=== PATIENT | female | born 1955 | race African-American/Black ===

== ENCOUNTER 2017-06-01 12:53 | Emergency (ER) | payer OTHER ==
[~2017-06-01] VITALS: Ht 170.2 cm; Wt 145.2 kg
--- NOTE | ~2017-06-01 | EKG ---
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 : 1955 Requested By: Barbie Currie Order Number: [id number] MD: Feliciano Chamberlain Measurements Intervals [place] Rate: 75 P: 59 WV: 164 QRS: 23 QRSD: 100 T: 10 QT: 382 QTc: 427 Interpretive Statements Sinus rhythm Minimal ST depression, inferior leads Compared to ECG 08/20/2011 10:27:09 ST (T wave) deviation now present Electronically Signed On 06-02-2017 16:39:12 CDT by Feliciano Chamberlain [email or web address] <ELECTRONICALLY SIGNED> By: Feliciano Chamberlain MD 06/02/17 1639 02 02 Feliciano Chamberlain MD /IOANA
[~2017-06-01 12:53] MED LIST: BP MED PO; CLARITIN10 M2 PO; FAMOTIDINE PO; HUMALOG100 UNIT/1; LANTUS; REGLAN 10 MG TA10 MG PO; STOOL SOFTENER240 MG; TRICOR48 MG; VICODIN 5-5001 EACH PO; ZANTAC 150MG T150 M1
[2017-06-01 14:00] LABS: URINE BILIRUBIN NEGATIVE (Negative); URINE BLOOD 2+ (Negative); URINE COLOR YELLOW; URINE GLUCOSE-RANDOM* NEGATIVE (Negative); URINE KETONES NEGATIVE (Negative); URINE NITRITE NEGATIVE (Negative); URINE PROTEIN (DIPSTICK) NEGATIVE (Negative); URINE UROBILINOGEN 0.2 E.U./dl (0.2-1.0)
[2017-06-01 14:08] LABS: SQUAMOUS 0-3 Few /LPF (0-3); URINE WBC 0-5 Rare /HPF (0-5)
[2017-06-01 14:09] LABS: BACTERIA 1-9 Few /HPF (None Seen); CASTS None Seen /LPF (None Seen); CRYSTALS None Seen /LPF (None Seen); URINE RBC 3-10 Few /HPF (0-2)
[2017-06-01 14:35] LABS: ABSOLUTE NEUTROPHILS 4.6 thou/uL (1.4-8.2); BASOPHILS 0.3 % (0.0-2.0); EOSINOPHILS 1.8 % (0.0-3.0); HEMATOCRIT 38.3 % (37.0-47.0); LYMPHOCYTES 31.6 % (24.0-44.0); MCH 29.4 pg (26.0-34.0); MCHC 33.9 g/dL (28.0-37.0); MCV 86.7 fL (80.0-100.0); PLATELET COUNT 254 thou/uL (150-400); POLYS 62.3 % (36.0-66.0); RBC 4.42 mil/uL (4.20-5.00); RDW 14.6 % (10.5-14.5); WBC 7.4 thou/uL (4.0-11.0)
[2017-06-01 14:36] LABS: MANUAL DIFF NO
[2017-06-01 14:43] LABS: ANION GAP 7 mmol/L (7-16); BUN 12 mg/dL (7-18); CALCIUM 9.4 mg/dL (8.5-10.1); CHLORIDE 102 mmol/L (98-107); CO2 29 mmol/L (21-32); CREATININE 0.8 mg/dL (0.6-1.0); GLUCOSE 182 mg/dL (74-106); POTASSIUM 4.3 mmol/L (3.5-5.1); SODIUM 138 mmol/L (136-145)
[2017-06-01] MEDS ORDERED: ATORVASTATIN CA40 MG PO (14:49)
[2017-06-01] MEDS ORDERED: METFORMIN HCL500 MG PO (14:49)
[2017-06-01 14:50] LABS: ALBUMIN 3.4 g/dL (3.4-5.0); ALKALINE PHOSPHATASE 102 U/L (46-116); DIRECT BILIRUBIN < 0.1 mg/dL (<0.1-0.3); SGOT 19 U/L (15-37); SGPT 21 U/L (30-65); TOTAL BILIRUBIN 0.5 mg/dL (<0.1-1.0); TOTAL PROTEIN 7.9 g/dL (6.4-8.2)
[2017-06-01] MEDS ORDERED: ZANTAC 150MG T150 MG PO (14:50)
[2017-06-01] MEDS ORDERED: PROMS25 WY RECTAL (15:29)
[2017-06-01] MEDS ORDERED: ZOFRAN ODT4 MG PO (15:29)
[2017-06-01] MEDS ORDERED: PHENERGAN 25 MG25 M1 PO (15:29)
[2017-06-01 16:49] VITALS: BP 153/78
== END 2017-06-01 16:53 | disposition home or self-care (01) ==
LOC: ER 12:53
PROVIDERS: Emergency Medicine
DX: R10.84 Generalized abdominal pain (principal); R11.2 Nausea with vomiting, unspecified; R19.7 Diarrhea, unspecified; I10 Essential (primary) hypertension; E78.00 Pure hypercholesterolemia, unspecified; E11.9 Type 2 diabetes mellitus without complications; Z90.710 Acquired absence of both cervix and uterus; Z90.49 Acquired absence of other specified parts of digestive tract; Z88.6 Allergy status to analgesic agent; Z88.5 Allergy status to narcotic agent; Z79.4 Long term (current) use of insulin

== ENCOUNTER 2017-06-30 10:12 | Inpatient (IN) | payer OTHER ==
[~2017-06-30] VITALS: Ht 170.2 cm; Wt 142.9 kg
--- NOTE | ~2017-06-30 | EKG ---
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
[~2017-06-30 10:12] MED LIST changes: +ATORVASTATIN CA40 MG PO; +METFORMIN HCL500 MG PO; +PHENERGAN 25 MG25 M1 PO; +PROMS25 WY RECTAL; +ZANTAC 150MG T150 MG PO; +ZOFRAN ODT4 MG PO
[2017-06-30 10:14] VITALS: BP 133/86
[2017-06-30 11:19] LABS: URINE BILIRUBIN NEGATIVE (Negative); URINE BLOOD 1+ (Negative); URINE COLOR YELLOW; URINE GLUCOSE-RANDOM* NEGATIVE (Negative); URINE KETONES NEGATIVE (Negative); URINE NITRITE NEGATIVE (Negative); URINE PROTEIN (DIPSTICK) TRACE (Negative); URINE UROBILINOGEN 0.2 E.U./dl (0.2-1.0)
[2017-06-30 11:36] LABS: BACTERIA 1-9 Few /HPF (None Seen); CASTS None Seen /LPF (None Seen); SQUAMOUS 4-10 Moderate /LPF (0-3); URINE RBC 0-2 Rare /HPF (0-2); URINE WBC 0-5 Rare /HPF (0-5)
[2017-06-30 11:37] LABS: CRYSTALS None Seen /LPF (None Seen)
[2017-06-30 12:23] LABS: ABSOLUTE NEUTROPHILS 10.3 thou/uL (1.4-8.2); BASOPHILS 0.2 % (0.0-2.0); EOSINOPHILS 1.1 % (0.0-3.0); HEMATOCRIT 40.8 % (37.0-47.0); HEMOGLOBIN 13.4 gm/dL (12.0-15.0); LYMPHOCYTES 13.5 % (24.0-44.0); MCH 28.6 pg (26.0-34.0); MCHC 32.7 g/dL (28.0-37.0); MCV 87.3 fL (80.0-100.0); MONOCYTES 3.3 % (1.0-8.0); PLATELET COUNT 272 thou/uL (150-400); POLYS 81.9 % (36.0-66.0); RBC 4.68 mil/uL (4.20-5.00); RDW 14.6 % (10.5-14.5); WBC 12.6 thou/uL (4.0-11.0)
[2017-06-30 12:27] LABS: ANION GAP 8 mmol/L (7-16); BUN 20 mg/dL (7-18); CHLORIDE 104 mmol/L (98-107); CO2 25 mmol/L (21-32); CREATININE 1.1 mg/dL (0.6-1.0); GLUCOSE 229 mg/dL (74-106); POTASSIUM 4.1 mmol/L (3.5-5.1); SODIUM 137 mmol/L (136-145)
[2017-06-30 12:28] LABS: MANUAL DIFF NO
[2017-06-30 12:37] LABS: ALBUMIN 3.1 g/dL (3.4-5.0); ALKALINE PHOSPHATASE 82 U/L (46-116); SGOT 17 U/L (15-37); SGPT 21 U/L (30-65); TOTAL BILIRUBIN 0.5 mg/dL (<0.1-1.0); TROPONIN-I < 0.04 ng/mL (<0.04-0.07)
[2017-06-30] MEDS ORDERED: LANTUS100 UNIT/M SUBQ (15:40)
[2017-06-30] MEDS ORDERED: LISINOPRIL20 MG PO (15:40)
[2017-06-30 16:19] VITALS: BP 103/46
[2017-06-30 16:25] VITALS: BP 128/67
[2017-06-30 20:10] VITALS: BP 121/56
[2017-07-01 04:20] VITALS: BP 103/46
[2017-07-01 07:23] LABS: HEMATOCRIT 35.1 % (37.0-47.0); HEMOGLOBIN 11.8 gm/dL (12.0-15.0); MCH 29.2 pg (26.0-34.0); MCHC 33.5 g/dL (28.0-37.0); RBC 4.04 mil/uL (4.20-5.00); WBC 8.3 thou/uL (4.0-11.0)
[2017-07-01 07:30] LABS: CALCIUM 8.5 mg/dL (8.5-10.1); CREATININE 0.9 mg/dL (0.6-1.0); POTASSIUM 3.8 mmol/L (3.5-5.1)
[2017-07-01 07:35] VITALS: BP 119/48
[2017-07-01 08:42] VITALS: BP 103/59
[2017-07-01 11:51] VITALS: BP 117/89
[2017-07-01 15:55] VITALS: BP 116/71
[2017-07-01 19:07] VITALS: BP 123/46
[2017-07-02 05:04] VITALS: BP 164/90
[2017-07-02 07:30] VITALS: BP 120/57
[2017-07-02 09:28] LABS: HEMATOCRIT 37.7 % (37.0-47.0); HEMOGLOBIN 12.3 gm/dL (12.0-15.0); MCH 28.5 pg (26.0-34.0); MCHC 32.7 g/dL (28.0-37.0); MCV 87.4 fL (80.0-100.0); RBC 4.32 mil/uL (4.20-5.00); WBC 6.1 thou/uL (4.0-11.0)
[2017-07-02 09:39] LABS: CALCIUM 8.8 mg/dL (8.5-10.1); CREATININE 0.8 mg/dL (0.6-1.0); POTASSIUM 3.9 mmol/L (3.5-5.1)
[2017-07-02 15:15] VITALS: BP 155/89
[2017-07-02 20:00] VITALS: BP 148/88
[2017-07-03 04:00] VITALS: BP 121/59
[2017-07-03 07:35] VITALS: BP 156/84
[2017-07-03] MEDS ORDERED: CIPRO500 MG PO (08:54)
[2017-07-03 12:47] VITALS: BP 156/84
== END 2017-07-03 14:20 | disposition home or self-care (01) | DRG 372 ==
LOC: ER 10:12 → EROBS 14:49 → 4N 14:49
PROVIDERS: Hospitalist; Internal Medicine; Physician Assistant
DX: A04.9 Bacterial intestinal infection, unspecified (principal); N17.9 Acute kidney failure, unspecified; K56.69 Other intestinal obstruction; K52.9 Noninfective gastroenteritis and colitis, unspecified; E11.9 Type 2 diabetes mellitus without complications; E78.00 Pure hypercholesterolemia, unspecified; E86.0 Dehydration; E78.5 Hyperlipidemia, unspecified; I10 Essential (primary) hypertension; Z88.5 Allergy status to narcotic agent; Z90.710 Acquired absence of both cervix and uterus; Z79.899 Other long term (current) drug therapy; Z88.6 Allergy status to analgesic agent; Z79.4 Long term (current) use of insulin; Z79.84 Long term (current) use of oral hypoglycemic drugs; Z79.1 Long term (current) use of non-steroidal anti-inflammatories (NSAID); Z79.2 Long term (current) use of antibiotics; Z90.49 Acquired absence of other specified parts of digestive tract
CPT/HCPCS: 10091

== ENCOUNTER 2021-01-05 04:54 | Emergency (ER) | payer OTHER ==
[~2021-01-05] VITALS: Ht 172.7 cm; Wt 136.1 kg
[~2021-01-05 04:54] MED LIST changes: +ACETAMINOPHEN325 M1 PO; +ACIDOPHILUS1 EAC4 PO; +BENZONATATE100 MG PO; +CEFUROXIME500 MG PO; +CEPACOL SORE T1 EAC7 PO; +CIPRO500 MG PO; +IPRAT-ALBUT 0.5-3 ML INH; +IRON325 PO; +LANTUS100 UNIT/M SUBQ; +LISINOPRIL20 MG PO; +MAG-AL PLUS SUS30 ML PO; +PROMETHAZINE-C473 ML PO; +ZITHROMAX500 MG PO
[2021-01-05 07:27] VITALS: BP 157/52
== END 2021-01-05 07:27 | disposition home or self-care (01) ==
LOC: ER 04:54
DX: E11.649 Type 2 diabetes mellitus with hypoglycemia without coma (principal); R11.0 Nausea; I10 Essential (primary) hypertension; E11.9 Type 2 diabetes mellitus without complications; E78.5 Hyperlipidemia, unspecified; Z90.710 Acquired absence of both cervix and uterus; Z79.4 Long term (current) use of insulin; Z79.899 Other long term (current) drug therapy; Z88.6 Allergy status to analgesic agent; Z88.5 Allergy status to narcotic agent; Z88.8 Allergy status to other drugs, medicaments and biological substances

== ENCOUNTER 2021-06-04 22:23 | Emergency (ER) | payer OTHER ==
[~2021-06-04] VITALS: Ht 170.2 cm; Wt 154.2 kg
[2021-06-04] MEDS ORDERED: TRULICITY4.5 MG/0.5 SUBQ (22:46)
[2021-06-04 23:41] LABS: ABSOLUTE NEUTROPHILS 5.2 thou/uL (1.4-8.2); BASOPHILS 0.6 % (0.0-2.0); EOSINOPHILS 2.7 % (0.0-3.0); HEMATOCRIT 39.4 % (37.0-47.0); HEMOGLOBIN 12.7 gm/dL (12.0-15.0); LYMPHOCYTES 31.5 % (24.0-44.0); MCH 28.6 pg (26.0-34.0); MCHC 32.2 g/dL (28.0-37.0); MCV 88.8 fL (80.0-100.0); MONOCYTES 5.5 % (1.0-8.0); PLATELET COUNT 252 thou/uL (150-400); POLYS 59.7 % (36.0-66.0); RBC 4.44 mil/uL (4.20-5.00); RDW 14.6 % (10.5-14.5); WBC 8.7 thou/uL (4.0-11.0)
[2021-06-04 23:52] LABS: CREATININE 1.2 mg/dL (0.6-1.0); POTASSIUM 4.1 mmol/L (3.5-5.1)
[2021-06-05 00:02] LABS: ALBUMIN 3.3 g/dL (3.4-5.0); TOTAL BILIRUBIN 0.4 mg/dL (0.2-1.0); TOTAL PROTEIN 7.4 g/dL (6.4-8.2)
[2021-06-05 02:50] VITALS: BP 156/57
--- NOTE | 2021-06-05 07:19 | EKG ---
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
== END 2021-06-05 03:14 | disposition home or self-care (01) ==
LOC: ER 22:23
PROVIDERS: Student in an Organized Health Care Education/Training Program
DX: M79.602 Pain in left arm (principal); R07.89 Other chest pain; E11.9 Type 2 diabetes mellitus without complications; I10 Essential (primary) hypertension; E78.00 Pure hypercholesterolemia, unspecified; Z90.710 Acquired absence of both cervix and uterus; Z90.49 Acquired absence of other specified parts of digestive tract; Z79.4 Long term (current) use of insulin; Z79.899 Other long term (current) drug therapy; Z88.6 Allergy status to analgesic agent; Z88.5 Allergy status to narcotic agent; Z88.0 Allergy status to penicillin

== ENCOUNTER 2021-10-31 12:58 | Emergency (ER) | payer OTHER ==
[~2021-10-31] VITALS: Ht 170.2 cm; Wt 129.3 kg
[~2021-10-31 12:58] MED LIST changes: +TRULICITY4.5 MG/0.5 SUBQ
[2021-10-31 13:07] VITALS: BP 131/93
[2021-10-31] MEDS ORDERED: ZPAK PO (14:03)
== END 2021-10-31 14:57 | disposition home or self-care (01) ==
LOC: ER 12:58
DX: U07.1 COVID-19 (principal); J12.82 Pneumonia due to coronavirus disease 2019; E11.9 Type 2 diabetes mellitus without complications; I10 Essential (primary) hypertension; E78.00 Pure hypercholesterolemia, unspecified; Z90.710 Acquired absence of both cervix and uterus; Z90.49 Acquired absence of other specified parts of digestive tract; Z79.899 Other long term (current) drug therapy; Z88.0 Allergy status to penicillin; Z88.6 Allergy status to analgesic agent; Z88.5 Allergy status to narcotic agent